=== PATIENT | female | born 1985 | race African-American/Black ===

== ENCOUNTER 2016-05-07 08:38 | Emergency (ER) | payer OTHER ==
--- NOTE | 2016-05-07 08:40 | PDOC ---
History of Present Illness - General Chief Complaint: Pain, Acute Stated Complaint: RIGHT KNEE PAIN Time Seen by Provider: 05/07/16 08:39 History Source: Patient Exam Limitations: No Limitations - History of Present Illness Initial Comments: 30 yo F history OCP use presents with R knee pain and swelling for past 5-6 days. She states that it has been slowly worsening. The pain localizes to the R lateral knee, radiates down to the ankle. Denies any recent injury. Describes sensation of something protruding from the knee at times. She notes swelling to the knee and ankle. She is able to ambulate. Has not taken anything for pain. Past History - Past Medical History Allergies/Adverse Reactions: Allergies Allergy/AdvReac Type Severity Reaction Status Date / Time shellfish derived Allergy Severe Swelling Verified 05/07/16 08:39 Home Medications: Ambulatory Orders Norethindrone-E.estradiol-Iron [Junel Fe 1 mg-20 Mcg Tablet] 1 each PO DAILY - Reproductive History (#): 4 Para: 1 Spontaneous : 3 - Psycho/Social/Smoking Cessation Hx Anxiety: No Suicidal Ideation: No Smoking History: Never smoked Hx Alcohol Use: No Drug/Substance Use Hx: No Substance Use Type: None Review of Systems - Review of Systems Able to Perform ROS?: Yes Comments:: GENERAL/CONSTITUTIONAL: No fever or chills. No weakness. HEAD, EYES, EARS, NOSE AND THROAT: No change in vision. No ear pain or discharge. No sore throat. CARDIOVASCULAR: No chest pain or shortness of breath. RESPIRATORY: No cough, wheezing, or hemoptysis. GASTROINTESTINAL: No nausea, vomiting, diarrhea or constipation. GENITOURINARY: No dysuria, frequency, or change in urination. MUSCULOSKELETAL: +R knee pain and ankle pain. Otherwise no joint or muscle swelling or pain. No neck or back pain. SKIN: No rash NEUROLOGIC: No headache, vertigo, loss of consciousness, or change in strength/ sensation. ENDOCRINE: No increased thirst. No abnormal weight change. HEMATOLOGIC/LYMPHATIC: No anemia, easy bleeding, or history of blood clots. ALLERGIC/IMMUNOLOGIC: No hives or skin allergy. *Physical Exam - Physical Exam Comments: GENERAL: Awake, alert, and fully oriented, in no acute distress HEAD: No signs of trauma EYES: PERRLA, EOMI, sclera anicteric, conjunctiva clear ENT: Auricles normal inspection, hearing grossly normal, nares patent, oropharynx clear without exudates. Moist mucosa NECK: Normal ROM, supple, no lymphadenopathy, JVD, or masses LUNGS: Breath sounds equal, clear to auscultation bilaterally. No wheezes, and no crackles HEART: Regular rate and rhythm, normal S1 and S2, no murmurs, rubs or gallops ABDOMEN: Soft, nontender, normoactive bowel sounds. No guarding, no rebound. No masses EXTREMITIES: Normal range of motion. No bony tenderness. +Trace lateral R knee swelling, with localized tenderness. +Pain elicited on stressing the lateral meniscus. +Calf tenderness and posterior knee tenderness. Ankle with no edema. No ligamentous instability. No clubbing or cyanosis. No cords, erythema. NEUROLOGICAL: Cranial nerves II through XII grossly intact. Normal speech, normal gait SKIN: Warm, Dry, normal turgor, no rashes or lesions noted. Medical Decision Making - Medical Decision Making Sono results discussed with patient. Suspect meniscus injury based on exam findings. Recommended rest, elevation, ice, compression. I placed an REYNA bandage in ED and recommended ortho f/u. If pain continues, she may eventually need an MRI, but there is no emergent need for one at this time, and it very well may heal with rest and no further intervention. NSAIDs for pain. Patient is able to ambulate without difficulty, therefore would not immobilize at this time, as it may only cause additional problems. *DC/Admit/Observation/Transfer Diagnosis at time of Disposition: Knee pain Qualifiers: Laterality: right Chronicity: acute Qualified Code(s): M25.561 - Pain in right knee - Discharge Dispostion Disposition: HOME Condition at time of disposition: Stable Admit: No - Referrals Referrals: Teodoro Ozuna MD [Staff Physician] - Gurinder Rangel MD [Primary Care Provider] - - Patient Instructions Printed Discharge Instructions: DI for Knee Pain
[2016-05-07 08:42] VITALS: TEMP 98.5; BMI 28.5
[2016-05-07] MEDS ORDERED: IBUPROFEN 600 MG TABLET (FP) PO ONE ×2 (11:47→11:48)
[2016-05-07 14:35] VITALS: BP 148/93; PULSE 66
== END 2016-05-07 11:51 | disposition home or self-care (01) ==
LOC: FER 08:38
DX: M25.561 Pain in right knee (principal)
CPT/HCPCS: 84703; 93971-TC; 99282-25

== ENCOUNTER 2017-11-24 15:31 | Emergency (ER) | payer BC ==
[2017-11-24 15:56] VITALS: BP 152/91; PULSE 82; TEMP 98.1; BMI 28.5
[2017-11-24 16:26] LABS: PH,URINE 6.5 (4.5-8); URINE APPEARANCE Clear; URINE BILIRUBIN Negative (NEGATIVE); URINE COLOR Yellow; URINE GLUCOSE (UA) Negative (NEGATIVE); URINE KETONE Negative (NEGATIVE); URINE LEUK ESTERASE Negative (NEGATIVE); URINE NITRITE Negative (NEGATIVE); URINE PROTEIN Negative (NEGATIVE); URINE UROBILINOGEN 0.2 (0.2-1.0)
[2017-11-24 16:34] LABS: HCG,QUALITATIVE URINE Negative
--- NOTE | 2017-11-24 16:37 | PDOC ---
History of Present Illness - General Chief Complaint: Vaginal Bleeding Stated Complaint: VAGINAL BLEEDING Time Seen by Provider: 11/24/17 16:36 - History of Present Illness Initial Comments: 11/24/17 17:14 32 years old G6, P 1, LMP Oct 18, presents to the emergency department with positive test on Thursday followed by vaginal spotting. No significant abdominal pain some intermittent and crampy discomfort. Was told to come to the emergency department for further evaluation Upon arrival to the emergency department patient's test negative Past History - Past Medical History Allergies/Adverse Reactions: Allergies Allergy/AdvReac Type Severity Reaction Status Date / Time shellfish derived Allergy Severe Swelling Verified 11/24/17 15:32 Home Medications: Ambulatory Orders NK [No Known Home Medication] 11/24/17 COPD: No DVT: No Psychiatric Problems: Yes - Reproductive History Is Patient Now?: Yes (POSITIVE HOME TEST) (#): 6 Para: 1 Therapeutic (s) & number: Yes Spontaneous : 3 - Suicide/Smoking/Psychosocial Hx Smoking History: Never smoked Have you smoked in the past 12 months: No Information on smoking cessation initiated: No Hx Alcohol Use: No Drug/Substance Use Hx: No Substance Use Type: None Review of Systems - Review of Systems Comments:: 11/24/17 17:15 ROS: A complete review of 10 out of 10 review of systems is taken and is negative apart from what is previously mentioned below and in the HPI. *Physical Exam - Vital Signs Last Vital Signs Temp Pulse Resp BP Pulse Ox 98.1 F 82 18 152/91 100 11/24/17 15:31 11/24/17 15:31 11/24/17 15:31 11/24/17 15:31 11/24/17 15:31 - Physical Exam Comments: 11/24/17 17:15 Vitals: Triage Vital signs reviewed General Appearance: no acute distress, well nourished well developed, Head: Atraumatic, Neck: Supple;No Nucal rigidity Chest Wall: Nontender Cardiac: Regular rate and rhythym, no murmurs, no rubs, no gallops, Lungs: Clear to auscultation bilateral, good air movement bilaterally, Abdomen: Soft, non distended, normal bowel sounds, non tender to palpation Extremities: Full range of motion to all extremities, no cyanosis, clubbing, or edema Skin: Warm and dry, no rashes or lesions, no rash, no petechiae Psych: normal mood, normal affect ED Treatment Course - LABORATORY CBC & Chemistry Diagram: 11/24/17 17:14 11/24/17 17:14 - ADDITIONAL ORDERS Additional order review: Laboratory Results 11/24/17 16:02 Urine Color Yellow Urine Appearance Clear Urine pH 6.5 Ur Specific [place] <= 1.005 Urine Protein Negative Urine Glucose (UA) Negative Urine Ketones Negative Urine Blood 2+ H Urine Nitrite Negative Urine Bilirubin Negative Urine Urobilinogen 0.2 Ur Leukocyte Esterase Negative Urine HCG, Qual Negative Medical Decision Making - Medical Decision Making 11/24/17 17:14 Vaginal spotting for the last few days to the test at home which was positive today test is negative. HCG and type and screen pending Given positive test 5 days ago now with negative test Dr. NOONAN will follow up labs and reasses *DC/Admit/Observation/Transfer Diagnosis at time of Disposition: Vaginal spotting - Discharge Dispostion Disposition: HOME Condition at time of disposition: Stable Decision to Admit order: No - Referrals - Patient Instructions Additional Instructions: Take Tylenol or Motrin as needed for pain. Your serum test is not completed yet once is completed I will call you at the number you gave me and give you the result. Follow-up with your OB. Return to the emergency department immediately with ANY new, persistent or worsening symptoms. Continue any medications as previously prescribed by your physician. You should follow up with your primary doctor as soon as possible regarding today's emergency department visit. . Please make sure your doctor reviews the results of your emergency evaluation. Thank you for coming to the Emergency Department today for your care. It was a pleasure to see you today. Please note that your evaluation is INCOMPLETE until you follow-up with your doctor. - Post Discharge Activity
[2017-11-24 16:45] LABS: URINE WBC 0-2 (0-5)
[2017-11-24 17:34] LABS: BASO % 0.7 % (0-2.0); EOS % 2.1 % (0-4.5); HEMATOCRIT 40.7 % (32.4-45.2); HEMOGLOBIN 13.5 GM/dl (10.7-15.3); LYMPH % 34.8 % (8-40); MCH 33.3 pg (25.7-33.7); MCHC 33.2 g/dl (32.0-36.0); MEAN CELL VOLUME 100.3 fl (80-96); MEAN PLT VOLUME 7.4 fl (7.5-11.1); MONO % 8.6 % (3.8-10.2); NEUT % 53.8 % (42.8-82.8); PLATELET COUNT 323 K/MM3 (134-434); RBC 4.06 M/mm3 (3.60-5.2); RDW 12.7 % (11.6-15.6); WHITE BLOOD COUNT 5.9 K/mm3 (4.0-10.8)
[2017-11-24 17:48] LABS: ALBUMIN 4.1 g/dl (3.5-5.0); ALK PHOS 60 U/L (32-92); ANION GAP 7 MMOL/L (8-16); BILIRUBIN,TOTAL 1.1 mg/dl (0.2-1.0); BLOOD UREA NITROGEN 12 mg/dl (7-18); CHLORIDE 103 mmol/L (98-107); CO2 27 mmol/L (22-28); CREATININE 0.8 mg/dl (0.6-1.3); GLUCOSE,RANDOM 99 mg/dl (74-106); SGOT/AST 20 U/L (10-42); SGPT/ALT 16 U/L (10-40); SODIUM 137 mmol/L (136-145); TOT PROT 7.3 g/dl (6.4-8.3)
--- NOTE | 2017-11-24 20:34 | PDOC ---
*Physical Exam - Vital Signs Last Vital Signs Temp Pulse Resp BP Pulse Ox 98.1 F 82 18 152/91 100 11/24/17 15:31 11/24/17 15:31 11/24/17 15:31 11/24/17 15:31 11/24/17 15:31 ED Treatment Course - LABORATORY CBC & Chemistry Diagram: 11/24/17 17:14 11/24/17 17:14 - ADDITIONAL ORDERS Additional order review: Laboratory Results 11/24/17 11/24/17 11/24/17 17:14 17:14 16:02 Sodium 137 Potassium 4.0 Chloride 103 Carbon Dioxide 27 Anion Gap 7 L BUN 12 Creatinine 0.8 Creat Clearance w eGFR > 60 Random Glucose 99 Calcium 9.0 Total Bilirubin 1.1 H AST 20 ALT 16 Alkaline Phosphatase 60 Total Protein 7.3 Albumin 4.1 Urine Color Yellow Urine Appearance Clear Urine pH 6.5 Ur Specific [place] <= 1.005 Urine Protein Negative Urine Glucose (UA) Negative Urine Ketones Negative Urine Blood 2+ H Urine Nitrite Negative Urine Bilirubin Negative Urine Urobilinogen 0.2 Ur Leukocyte Esterase Negative Urine RBC 5-10 Urine WBC 0-2 Urine HCG, Qual Negative Blood Type O POSITIVE Antibody Screen Negative 11/24/17 17:14 RBC 4.06 MCV 100.3 H MCHC 33.2 RDW 12.7 MPV 7.4 L Neutrophils % 53.8 Lymphocytes % 34.8 Monocytes % 8.6 Eosinophils % 2.1 Basophils % 0.7 Progress Note - Progress Note Progress Note: Care of this patient was transferred to [place] from Dr. Espana at 1900 hrs. This is a 32-year-old female who has a urine test that was negative but a serum test is pending Margarita as patient did have a positive test and is now spotting. 20:30 Patient's serum test is also pending. The lab was called and they are not sure why was not done while running now. However patient does not want to wait source patient was discharged home and I will call her with the result. 21:00 Patient's beta hCG was 6 Patient was called and the result was given to her. Discussed with patient follow-up. Patient agreed to follow up with her OB. *DC/Admit/Observation/Transfer Diagnosis at time of Disposition: Vaginal spotting - Discharge Dispostion Disposition: HOME Condition at time of disposition: Stable Decision to Admit order: No - Referrals - Patient Instructions Additional Instructions: Take Tylenol or Motrin as needed for pain. Your serum test is not completed yet once is completed I will call you at the number you gave me and give you the result. Follow-up with your OB. Return to the emergency department immediately with ANY new, persistent or worsening symptoms. Continue any medications as previously prescribed by your physician. You should follow up with your primary doctor as soon as possible regarding today's emergency department visit. . Please make sure your doctor reviews the results of your emergency evaluation. Thank you for coming to the Emergency Department today for your care. It was a pleasure to see you today. Please note that your evaluation is INCOMPLETE until you follow-up with your doctor. - Post Discharge Activity
== END 2017-11-24 20:36 | disposition home or self-care (01) ==
LOC: FER 15:31
DX: N93.9 Abnormal uterine and vaginal bleeding, unspecified (principal)
CPT/HCPCS: 36415; 80053; 81003; 81015; 84702; 84703; 85025; 86850; 86900; 86901; 99281-25